=== PATIENT | female | born 1975 | race Caucasian/White ===

== ENCOUNTER 2017-06-11 15:22 | Inpatient (IN) | payer OTHER ==
[~2017-06-11] VITALS: Ht 149.9 cm; Wt 46.3 kg
[~2017-06-11 15:22] MED LIST: BAYER CHEWABLE81 MG PO; CARAFATE 1 GM TA1 GM PO; IBUPROFEN 400400 M1 PO; NOHOMEMEDICATIONS; NUVIGIL; PRILOSEC 20 MG20 MG PO; RITALIN10 MG PO; SSD CREAM 1% 5050 GM TOP; TOPAMAX 25 MG T25 M1 PO; TRAMADOL 50 MG50 MG PO; aspirin PO
[2017-06-11 15:27] VITALS: BP 145/88
[2017-06-11 15:31] VITALS: BP 145/88
[2017-06-11 15:51] LABS: ABSOLUTE BASOPHILS 0.1 thou/uL (0.0-0.2); ABSOLUTE EOSINOPHILS 0.1 thou/uL (0.0-0.7); ABSOLUTE LYMPHOCYTES 2.8 thou/uL (0.8-5.3); ABSOLUTE MONOCYTES 0.8 thou/uL (0.0-1.2); ABSOLUTE NEUTROPHILS 7.7 thou/uL (1.6-8.1); BASOPHILS 0.7 %; EOSINOPHILS 0.8 %; HEMATOCRIT 40.4 % (37.0-47.0); HEMOGLOBIN 13.5 gm/dL (12.0-15.0); LYMPHOCYTES 24.6 %; MCH 31.2 pg (26.0-34.0); MCHC 33.4 g/dL (28.0-37.0); MCV 93.4 fL (80.0-100.0); MONOCYTES 6.8 %; MPV 7.5 fl. (7.2-11.1); NUCLEATED RBCS 0 /100WBC; PLATELET COUNT* 283 thou/uL (150-400); POLYS 67.1 %; RBC 4.32 mil/uL (4.20-5.00); RDW-CV 12.8 % (10.5-14.5); WBC 11.5 thou/uL (4.0-11.0)
[2017-06-11 15:57] LABS: ANION GAP 8 mmol/L (7-16); BUN 23 mg/dL (7-18); CALCIUM 8.9 mg/dL (8.5-10.1); CHLORIDE 101 mmol/L (98-107); CO2 29 mmol/L (21-32); CREATININE 0.9 mg/dL (0.6-1.3); GLUCOSE 115 mg/dL (70-99); POTASSIUM 3.6 mmol/L (3.5-5.1); SODIUM 138 mmol/L (136-145)
[2017-06-11 16:00] LABS: INR 1.1; PROTIME 10.8 Seconds (9.20-11.50)
[2017-06-11 16:05] LABS: ALBUMIN 3.9 g/dL (3.4-5.0); ALKALINE PHOSPHATASE 68 U/L (46-116); SGOT 13 U/L (15-37); SGPT 22 U/L (30-65); TOTAL BILIRUBIN 0.8 mg/dL (<0.1-1.0); TOTAL PROTEIN 7.1 g/dL (6.4-8.2); TROPONIN-I LEVEL <0.06 ng/mL (<0.06)
[2017-06-11 17:19] VITALS: BP 145/88
[2017-06-11 17:54] VITALS: BP 148/76
[2017-06-11 18:00] VITALS: BP 148/76
--- NOTE | 2017-06-11 18:54 | NUR ---
PT ADMITTED TO ROOM 211 VIA CART FROM ED AT APPROXIMATELY 1755 WITH TIA. REPORT RECEIVED FROM EDMOND CLEMENS. PT ORIENTED TO ROOM AND CALL LIGHT. ADMISSION ASSESSMENT AND HISTORY COMPLETED. REFER TO CHARTING. HOME MEDICATIONS RECONCILED. PHARMACY ENTERED. SEPSIS SCREENING COMPLETE. PT SCREENED NEGATIVE. FALL AGREEMENT SIGNED AND PLACED IN CHART. NIH COMPLETED. PT SCORING 2 DUE TO MINOR DRIFT TO LLE AND MINOR DROOP TO LEFT SIDE OF FACE. NEURO CHECKS TO BE COMPLETED Q2H AND Q SHIFT. NEURO CHECK COMPLETED AT 1800. REFER TO CHARTING. PT STATED SHE HAD RECENT FALL WITHIN LAST 3 [address]S. FALL PRECAUTIONS IN PLACE. PT PASSED BEDSIDE SWALLOW WITH NO DIFFICULTIES. REGULAR DIET ORDERED FOR PT. PT TO BE NPO AFTER MIDNIGHT FOR CTA HEAD/BRAIN ANGIOGRAM IN AM. NEURO CONSULT IN PLACE. DR PERAZA SEEN PT IN ED. ORDERS RECEIVED FOR CT HEAD AND NECK, EEG AND US CAROTIDS. PT A&0X4. DENIES ANY PAIN OR SHORTNESS OF BREATH AT THIS TIME. TRACING SR ON THE OVERHEAD CRANE INSPECTOR. ON RA SAT 98%. PT UP SBA TO BATHROOM. MEDICATIONS PER AUG. PT HOURLY ROUNDING OBSERVED. PT REPOSITIONS SELF IN BED WITH REMINDERS. HOURLY ROUNDING OBSERVED. BED IN LOW POSITION. BED ALARM IN PLACE. FALL PRECAUTIONS IN PLACE. CALL LIGHT WITHIN REACH. WILL CONTINUE PLAN OF CARE.
[2017-06-11 20:15] VITALS: BP 127/79
[2017-06-12] VITALS: BP 119/56
[2017-06-12 04:00] VITALS: BP 96/54
[2017-06-12 04:58] LABS: CHOLESTEROL 215 mg/dL (<200); HDL CHOLESTEROL 77 mg/dL (>40); LDL CHOLESTEROL 130 mg/dL (<100); TC:HDL 2.8 Ratio (Not establshd); TRIGLYCERIDE 42 mg/dL (<150); VLDL 8 mg/dL (<40)
[2017-06-12 05:14] LABS: SERUM ASSESSMENT Clear
--- NOTE | 2017-06-12 05:31 | NUR ---
PT HAS RESTED COMFORTABLY THIS SHIFT, DENIES CONCERNS AND PAIN. VITAL SIGNS HAVE BEEN WDP THIS AND SR THIS SHIFT. NO SIGNIFICANT CHANGES THIS SHIFT.
[2017-06-12 07:30] VITALS: BP 126/88
[2017-06-12 08:00] VITALS: BP 107/58
[2017-06-12] MEDS ORDERED: FOLGARD TABLET1 EAC1 PO (09:44)
[2017-06-12] MEDS ORDERED: FISH OIL 1,001000 M2 PO (11:14)
[2017-06-12] MEDS ORDERED: ASA5UEC PO (11:14)
[2017-06-12 11:42] VITALS: BP 107/58
--- NOTE | 2017-06-12 11:43 | NUR ---
ORDER RECEIVED FOR "OT EVALUATION AND TREATMENT". 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 PT REPORTS NO NEUROLOGICAL SYMPTOMS AT THIS TIME. PT HAS PASSED VIDEO SWALLOW. AMBULATED WITH PHYSICAL THERAPIST THIS AM. PT STATES THAT SHE HAS NO NEED FOR SKILLED OT INTERVENTION AT THIS TIME. PLAN TO D/C.
[2017-06-12 12:08] VITALS: BP 107/58
--- NOTE | 2017-06-12 12:33 | NUR ---
VSS, ASSUMED CARE OF PT IN THE AM, ASSESSMENT PERFORMED AND CHARTED, FALL PRECAUTIONS IN PLACE AND CALL LIGHT IN REACH, PT IS A&O4 AND UP AD JESSY AND DENIES ANY PAIN, SCORES AN 0 ON NIH ASSESSMENT, PT GOAL IS TO D/C TO HOME ON DAY OF CARE, AT THIS TIME I HAVE RECIEVED D/C INSTRUCTIONS FILLED OUT PAPERS AND TOOK OUT IV AND TELE MONITOR, GAVE D/C INSTRUCTIONS PT DENIES ANY QUESTIONS AND SHE WAS WALKED OFF UNIT BY STAFF, AT 1230 TO CAR, HOURLY ROUNDS COMPLETED,
--- NOTE | 2017-07-04 20:10 | CON ---
[address] [address] CONSULTATION Name: LIVE BRIGHT Room: [address] IN M.R.#: [id number] Admission: 06/11/17 Attend Phys: Tiffanie Quick MD Discharge: 06/12/17 Date of : 71 Report #: [id number] THIS REPORT FOR: //name// CC: Tiffanie Pereyra DATE OF SERVICE: 06/11/2017 HISTORY OF PRESENT ILLNESS: This is a 41-year-old female patient who was evaluated by me for left-sided weakness and numbness. This patient had numerous episodes like this in the past. In fact, she had a patent foramen ovale, which was closed. She stopped taking aspirin and then, she had this episode where she had mainly numbness and some weakness on the left side. This was becoming better. This is a pattern she had followed in the past. No cause has been found in this patient and she had carotid Dopplers in the past. She had an MRI in the past. REVIEW OF SYSTEMS: She indicates she has narcolepsy. She has tried to get her sleep study from [facility], but we are not able to get that sleep study. She has a Gilbert syndrome, which if anything is protected from ischemic diseases if I remember correctly. This was her relevant 14-point review of systems. PAST MEDICAL HISTORY: Positive for migraine. FAMILY HISTORY: Negative for early age stroke. SOCIAL HISTORY: She does not smoke or drink any alcohol. PHYSICAL EXAMINATION: NEUROLOGICAL: Indicate that she is alert. She is responsive. Her speech, concentration, fund of knowledge and memory is at her baseline. Cranial nerve examination 2 through 12 may indicate slight weakness on the left side of the face, but the finding is not very prominent or convincing. She can move her arm against resistance and gravity but states that she is slightly weak but is getting better. Her touch is slightly different on both sides. Reflexes are symmetrical. CARDIAC: Examination is mostly unremarkable. RESPIRATORY: She has no respiratory difficulty. VITAL SIGNS: Blood pressure is 148/76, pulse is 82 and temperature is 98.7. RADIOLOGICAL DATA: Her CT scan was unremarkable. I reviewed her pretty extensive workup, which she had recently and that has been basically unremarkable. IMPRESSION: This patient may have had the same kind [place] [address] CONSULTATION Name: LIVE BRIGHT Dianna Room: [address]#: [id number] Admission: 06/11/17 Attend Phys: Tiffanie Quick MD Discharge: 06/12/17 Date of : 71 Report #: [id number] attack like symptoms, she had before. I discussed with her the options. I discussed with her the options of tissue plasminogen activator if she wants. Symptoms are mild and after discussing her options with her, she decided that she does not want the tissue plasminogen activator. As mentioned above, her symptoms are mild and we will follow that wishes. RECOMMENDATIONS: 1. We will get a carotid Doppler done. 2. I will also get an EEG done. 3. We will gradually increase the dose of Topamax. 4. The ER was going to give her aspirin in the Emergency Room. 5. We will follow the patient closely. More than 50 minutes of time was spent taking care of this patient today and majority of that time was spent counseling the patient and coordinating her care and reviewing her records in the computer. Thank you very much for this referral. <ELECTRONICALLY SIGNED> By: Bryce Calabrese MD 07/04/172009 1856 0317Bryce Calabrese MD /nt
== END 2017-06-12 12:28 | disposition home or self-care (01) | DRG 69 ==
LOC: M.ERS 15:22 → M.2W 16:29 → M.TBA-ER 16:29 → M.2W 17:54
PROVIDERS: Emergency Medicine; ADMIT Internal Medicine
DX: G45.9 Transient cerebral ischemic attack, unspecified (principal); Q21.1 Atrial septal defect; G43.909 Migraine, unspecified, not intractable, without status migrainosus; G47.419 Narcolepsy without cataplexy; Z88.6 Allergy status to analgesic agent; Z88.8 Allergy status to other drugs, medicaments and biological substances

== ENCOUNTER → 2017-08-15 | Outpatient (CLI) | payer OTHER ==
[~2017-08-15] MED LIST changes: +ASA5UEC PO; +BENADRYL25 MG PO; +FISH OIL 1,001000 M2 PO; +FOLGARD TABLET1 EAC1 PO; +MEDROLDOSEPACK PO; +NUVIGIL150 MG PO; +PLAVIX 75 MG TA75 M1 PO; +ROBAXIN 750 MG750 M1 PO; +TRAZODONE HCL100 MG PO; +TRIAMCINOLONE A80 G2 TOP; +VITAMIN D1000 UNI1 PO; +ZANAFLEX4 MG PO
[2017-08-15 17:08] LABS: IgA 110 mg/dL (87-352); IgG 788 mg/dL (700-1600); IgM 81 mg/dL (26-217)
== END ==
LOC: M.LAB 11:34
PROVIDERS: Psychiatry & Neurology Neuromuscular Medicine
DX: Z86.73 Personal history of transient ischemic attack (TIA), and cerebral infarction without residual deficits (principal)

== ENCOUNTER → 2017-08-21 | Outpatient (CLI) | payer OTHER ==
[2017-08-21 09:13] LABS: CHOLESTEROL 232 mg/dL (<200); HDL CHOLESTEROL 99 mg/dL (>40); LDL CHOLESTEROL 122 mg/dL (<100); TC:HDL 2.3 Ratio (Not establshd); TRIGLYCERIDE 57 mg/dL (<150); VLDL 11 mg/dL (<40)
[2017-08-21 09:14] LABS: SERUM ASSESSMENT Clear
== END ==
LOC: M.LAB 08:36
PROVIDERS: Internal Medicine Cardiovascular Disease
DX: G45.8 Other transient cerebral ischemic attacks and related syndromes (principal)

== ENCOUNTER → 2017-08-26 | Outpatient (CLI) | payer OTHER ==
--- NOTE | 2017-08-26 13:54 | 2DMMODE ---
[place] [address] 2 D/M-MODE ECHOCARDIOGRAM Name: LIVE BRIGHT Room: [facility]#: [id number] Admission: 08/26/17 Attend Phys: Adrian Pollock, Discharge: Date of : 71 Date of Service: 08/26/17 1354 Report #: [id number] THIS REPORT FOR: //name// APPROVED REPORT Study performed: 08/26/2017 11:42:52 EXAM: Comprehensive 2D, Doppler, and color-flow Echocardiogram with Bubble Study Patient Location: Out-Patient Status: routine BSA: 1.42 HR: 67 bpm BP: 120/80 mmHg Other Information Study Quality: Good Indications TIA PFO closure Echo Enhancing Agent Indication: Rule Out Septal Defect Agent(s) / Amount(s) Used: Agitated Saline cc 2D Dimensions LVEF(%): 57.47 (>50%) IVSd: 7.74 (7-11mm) LVOT Diam: 17.91 (18-24mm) LVDd: 45.77 mm PWd: 5.76 (7-11mm) Ascending Ao: 21.51 (22-36mm) LVDs: 31.99 (25-40mm) Aortic Root: 21.43 mm Borwn's LVEF: 57.47 % Volumes Left Atrial Volume (Systole) LA ESV Index: 20.30 mL/m2 Aortic Valve AoV Peak Luke.: 1.25 m/s AO Peak Gr.: 6.22 mmHg LVOT Max P.37 mmHg AO Mean Gr.: 3.25 mmHg LVOT Mean P.24 mmHg LVOT Max V: 1.16 m/s AO V2 VTI: 23.63 cm LVOT Mean V: 0.67 m/s SON (VTI): 2.41 cm2 LVOT V1 VTI: 22.63 [place] [address] 2 D/M-MODE ECHOCARDIOGRAM Name: LIVE BRIGHT Room: [facility]#: [id number] Admission: 08/26/17 Attend Phys: Adrian Pollock, Discharge: Date of : 71 Date of Service: 08/26/17 1354 Report #: [id number] Mitral Valve E/A Ratio: 1.39 MV Decel. Time: 155.40 ms MV E Max Luke.: 0.81 m/s MV PHT: 45.06 ms MVA (PHT): 4.88 cm2 TDI E/Lateral E': 4.50 E/Medial E': 5.40 Medial E' Luke.: 0.15 m/s Lateral E' Luke.: 0.18 m/s Pulmonary Valve PV Peak Luke.: 0.88 m/s PV Peak Gr.: 3.12 mmHg Tricuspid Valve TR Peak Gr.: 8.46 mmHg Left Ventricle The left ventricle is normal size. There is normal LV segmental wall motion. There is normal left ventricular wall thickness. Left ventricular systolic function is normal. LVEF is 55-60%. The left ventricular diastolic function is normal. Right Ventricle The right ventricle is normal size. The right ventricular systolic function is normal. Atria The left atrium size is normal. Injection of bubbles documented no interatrial shunt. Echogenic structure noted on both sides of the atrial septum consistent with an occluded her device. The right atrium size is normal. Aortic Valve The aortic valve is normal in structure. No aortic regurgitation is present. There is no aortic valvular stenosis. Mitral Valve The mitral valve is normal in structure. There is no mitral valve regurgitation noted. No evidence of mitral valve stenosis. Tricuspid Valve The tricuspid valve is normal in structure. Trace [place]icus[place] [address] 2 D/M-MODE ECHOCARDIOGRAM Name: LIVE BRIGHT Room: [facility]#: [id number] Admission: 08/26/17 Attend Phys: Adrian Pollock, Discharge: Date of : 71 Date of Service: 08/26/17 1354 Report #: [id number] Pulmonic Valve The pulmonary valve is normal in structure. There is no pulmonic valvular regurgitation. Great Vessels The aortic root is normal in size. IVC is normal in size and collapses with >50% inspiration Pericardium There is no pericardial effusion. <Conclusion> The left ventricle is normal size. There is normal left ventricular wall thickness. Left ventricular systolic function is normal. LVEF is 55-60%. The left ventricular diastolic function is normal. There is normal LV segmental wall motion. Injection of bubbles documented no interatrial shunt. Echogenic structure noted on both sides of the atrial septum consistent with an occluded her device. <ELECTRONICALLY SIGNED> By: Adrian Pollock MD, FACC 08/26/17 1354 1354 1354 Adrian Pollock MD, FACC /INF
== END ==
LOC: M.CRD 11:31
DX: G45.9 Transient cerebral ischemic attack, unspecified (principal)

== ENCOUNTER 2017-09-11 16:13 | Emergency (ER) | payer OTHER ==
[~2017-09-11] VITALS: Ht 149.9 cm; Wt 51.3 kg
[~2017-09-11 16:13] MED LIST changes: -BENADRYL25 MG PO; -MEDROLDOSEPACK PO; -NUVIGIL150 MG PO; -PLAVIX 75 MG TA75 M1 PO; -ROBAXIN 750 MG750 M1 PO; -TRAZODONE HCL100 MG PO; -TRIAMCINOLONE A80 G2 TOP; -VITAMIN D1000 UNI1 PO; -ZANAFLEX4 MG PO
[2017-09-11] MEDS ORDERED: PLAVIX 75 MG TA75 M1 PO (16:23)
[2017-09-11] MEDS ORDERED: TRIAMCINOLONE A80 G2 TOP (16:44)
[2017-09-11] MEDS ORDERED: MEDROLDOSEPACK PO (16:44)
[2017-09-11] MEDS ORDERED: BENADRYL25 MG PO (16:44)
[2017-09-11 16:58] VITALS: BP 141/97
== END 2017-09-11 17:00 | disposition home or self-care (01) ==
LOC: M.ERS 16:13
DX: L29.9 Pruritus, unspecified (principal); Z86.73 Personal history of transient ischemic attack (TIA), and cerebral infarction without residual deficits; Z88.1 Allergy status to other antibiotic agents; Z88.5 Allergy status to narcotic agent; Z91.013 Allergy to seafood

== ENCOUNTER 2017-10-24 16:28 | Inpatient (IN) | payer OTHER ==
[~2017-10-24] VITALS: Ht 152.4 cm; Wt 54.9 kg
[~2017-10-24 16:28] MED LIST changes: +BENADRYL25 MG PO; +MEDROLDOSEPACK PO; +PLAVIX 75 MG TA75 M1 PO; +TRIAMCINOLONE A80 G2 TOP
[2017-10-24 16:37] VITALS: BP 117/78
[2017-10-24] MEDS ORDERED: ROBAXIN 750 MG750 M1 PO (16:46)
[2017-10-24 17:00] LABS: HEMATOCRIT 38.6 % (37.0-47.0); HEMOGLOBIN 13.1 gm/dL (12.0-15.0); MCH 31.9 pg (26.0-34.0); MCV 93.6 fL (80.0-100.0); MPV 7.3 fl. (7.2-11.1); RBC 4.12 mil/uL (4.20-5.00); RDW-CV 12.3 % (10.5-14.5); WBC 6.9 thou/uL (4.0-11.0)
[2017-10-24 17:09] LABS: CALCIUM 9.2 mg/dL (8.5-10.1); POTASSIUM 3.9 mmol/L (3.5-5.1)
[2017-10-24 17:10] LABS: APTT 24.1 Seconds (25.0-31.3); PROTIME 10.1 Seconds (9.20-11.50)
[2017-10-24 17:14] LABS: TOTAL BILIRUBIN 0.6 mg/dL (<0.1-1.0); TOTAL PROTEIN 7.4 g/dL (6.4-8.2)
[2017-10-24 20:37] VITALS: BP 146/92
[2017-10-24 20:40] VITALS: BP 138/77
[2017-10-24] MEDS ORDERED: VITAMIN D1000 UNI1 PO (21:54)
[2017-10-24] MEDS ORDERED: ZANAFLEX4 MG PO (21:54)
[2017-10-25 01:06] VITALS: BP 92/51
[2017-10-25 04:27] VITALS: BP 95/51
[2017-10-25 05:22] LABS: CHOLESTEROL 213 mg/dL (<200); HDL CHOLESTEROL 67 mg/dL (>40); LDL CHOLESTEROL 135 mg/dL (<100); TC:HDL 3.2 Ratio (Not establshd); TRIGLYCERIDE 59 mg/dL (<150); VLDL 12 mg/dL (<40)
[2017-10-25 05:23] LABS: SERUM ASSESSMENT CLEAR
[2017-10-25 08:00] VITALS: BP 111/59
--- NOTE | 2017-10-25 13:07 | EKG ---
[place] [address] ELECTROCARDIOGRAM REPORT Name: LIVE BRIGHT Room: [address] IN [facility].#: [id number] Admission: 10/24/17 Attend Phys: Dianna Beltran Discharge: Date of : 71 Report #: [id number] THIS REPORT FOR: //name// [facility] ED Test Date: 2017-10-24 Test Time: 16:39:52 Pat Name: LIVE BRIGHT Department: Room: Gender: F Chart Changer: : 1975 Requested By: Song Hameed Order Number: [id number] MD: Espinoza Callahan Measurements Intervals [place] Rate: 73 P: 69 [place]: 117 QRS: 74 QRSD: 100 T: 17 QT: 370 QTc: 408 Interpretive Statements Sinus rhythm Borderline short [place] interval Minimal ST depression, inferior leads Compared to ECG 06/11/2017 16:02:35 ST (T wave) deviation now present Electronically Signed On 10-25-2017 13:07:21 CDT by Espinoza Callahan [email or web address] <ELECTRONICALLY SIGNED> By: Espinoza Callahan MD, FACC 10/25/17 1307 1639 1639 Espinoza Callahan MD, [facility] /EPI
[2017-10-25 14:29] VITALS: BP 111/59
[2017-10-25 17:11] LABS: GLYCOHEMOGLOBIN (HGB A1C) 4.6 % (4.8-5.6)
== END 2017-10-25 15:14 | disposition home or self-care (01) | DRG 69 ==
LOC: M.ERS 16:28 → M.TBA-ER 17:41 → M.2W 20:52
PROVIDERS: Emergency Medicine Emergency Medical Services; ADMIT Internal Medicine
DX: G45.9 Transient cerebral ischemic attack, unspecified (principal); G43.909 Migraine, unspecified, not intractable, without status migrainosus; E78.5 Hyperlipidemia, unspecified; F41.9 Anxiety disorder, unspecified; Z79.82 Long term (current) use of aspirin; Z79.899 Other long term (current) drug therapy; Z88.6 Allergy status to analgesic agent; Z88.8 Allergy status to other drugs, medicaments and biological substances

== ENCOUNTER → 2017-10-29 | Outpatient (CLI) | payer OTHER ==
[~2017-10-29] MED LIST changes: +NUVIGIL150 MG PO; +ROBAXIN 750 MG750 M1 PO; +TRAZODONE HCL100 MG PO; +VITAMIN D1000 UNI1 PO; +ZANAFLEX4 MG PO
== END ==
LOC: M.LAB 14:58
DX: Z12.31 Encounter for screening mammogram for malignant neoplasm of breast (principal)

== ENCOUNTER → 2017-11-06 | Outpatient (CLI) | payer OTHER | LOC: M.RAD 10-31 12:35 | DX: R92.1 Mammographic calcification found on diagnostic imaging of breast (principal) ==

== ENCOUNTER → 2017-12-19 | Outpatient (CLI) | payer OTHER ==
[2017-12-19 19:41] LABS: ABSOLUTE BASOPHILS 0.1 thou/uL (0.0-0.2); ABSOLUTE EOSINOPHILS 0.2 thou/uL (0.0-0.7); ABSOLUTE LYMPHOCYTES 2.4 thou/uL (0.8-5.3); ABSOLUTE MONOCYTES 0.4 thou/uL (0.0-1.2); ABSOLUTE NEUTROPHILS 3.7 thou/uL (1.6-8.1); BASOPHILS 0.9 %; EOSINOPHILS 2.2 %; HEMATOCRIT 37.2 % (37.0-47.0); HEMOGLOBIN 12.7 gm/dL (12.0-15.0); MCH 31.4 pg (26.0-34.0); MCV 92.3 fL (80.0-100.0); MONOCYTES 6.4 %; MPV 7.7 fl. (7.2-11.1); NUCLEATED RBCS 0 /100WBC; PLATELET COUNT* 284 thou/uL (150-400); POLYS 55.5 %; RBC 4.04 mil/uL (4.20-5.00); RDW-CV 12.5 % (10.5-14.5); WBC 6.7 thou/uL (4.0-11.0)
[2017-12-19 19:47] LABS: URINE BILIRUBIN NEGATIVE (Negative); URINE BLOOD NEGATIVE (Negative); URINE CLARITY SL CLOUDY; URINE COLOR YELLOW; URINE GLUCOSE-RANDOM NEGATIVE (Negative); URINE KETONES NEGATIVE (Negative); URINE LEUKOCYTES NEGATIVE (Negative); URINE NITRITE NEGATIVE (Negative); URINE PROTEIN NEGATIVE (Negative); URINE UROBILINOGEN 0.2 E.U./dl (0.2-1.0)
[2017-12-19 19:56] LABS: ALBUMIN 3.9 g/dL (3.4-5.0); CALCIUM 9.1 mg/dL (8.5-10.1); CREATININE 0.6 mg/dL (0.6-1.3); POTASSIUM 3.5 mmol/L (3.5-5.1); TOTAL BILIRUBIN 0.6 mg/dL (<0.1-1.0); TOTAL PROTEIN 7.1 g/dL (6.4-8.2)
[2017-12-19 20:48] LABS: ESR (SEDRATE) 4 mm/hr (0-20)
[2017-12-20 14:10] LABS: COMPLEMENT-C4 26 mg/dL (14-44)
[2017-12-22 13:15] LABS: ANA INTERPRETATION Negative (Negative)
== END ==
LOC: M.LAB 16:07
PROVIDERS: Allergy & Immunology Allergy
DX: L50.0 Allergic urticaria (principal)

== ENCOUNTER → 2017-12-23 | Outpatient (CLI) | payer OTHER | LOC: M.LAB 16:13 | DX: L50.0 Allergic urticaria (principal) ==

== ENCOUNTER 2018-04-16 03:16 | Emergency (ER) | payer OTHER ==
[~2018-04-16] VITALS: Ht 149.9 cm; Wt 54.9 kg
[~2018-04-16 03:16] MED LIST changes: -NUVIGIL150 MG PO; -TRAZODONE HCL100 MG PO
[2018-04-16 03:21] VITALS: BP 149/62
[2018-04-16] MEDS ORDERED: NUVIGIL150 MG PO (03:26)
[2018-04-16] MEDS ORDERED: TRAZODONE HCL100 MG PO (03:27)
== END 2018-04-16 04:07 | disposition home or self-care (01) ==
LOC: M.ERS 03:16
DX: Z77.098 Contact with and (suspected) exposure to other hazardous, chiefly nonmedicinal, chemicals (principal)

== ENCOUNTER 2018-04-22 00:19 | Emergency (ER) | payer OTHER ==
[~2018-04-22] VITALS: Ht 149.9 cm; Wt 54.4 kg
[~2018-04-22 00:19] MED LIST changes: +NUVIGIL150 MG PO; +TRAZODONE HCL100 MG PO
[2018-04-22 02:35] VITALS: BP 95/56
== END 2018-04-22 02:35 | disposition home or self-care (01) ==
LOC: M.ERS 00:19
DX: L29.9 Pruritus, unspecified (principal); Z88.1 Allergy status to other antibiotic agents; Z88.6 Allergy status to analgesic agent; Z91.013 Allergy to seafood; Z86.73 Personal history of transient ischemic attack (TIA), and cerebral infarction without residual deficits

== ENCOUNTER → 2018-08-04 | Outpatient (CLI) | payer OTHER | LOC: M.RAD 08:44 | DX: M47.892 Other spondylosis, cervical region (principal); W00.9XXA Unspecified fall due to ice and snow, initial encounter ==

== ENCOUNTER 2018-12-21 17:30 | Emergency (ER) | payer OTHER ==
[~2018-12-21] VITALS: Ht 149.9 cm; Wt 59.0 kg
[2018-12-21] MEDS ORDERED: ADDERALL 5 MG TA5 MG PO (17:39)
[2018-12-21 18:27] LABS: ABSOLUTE BASOPHILS 0.1 thou/uL (0.0-0.2); ABSOLUTE EOSINOPHILS 0.2 thou/uL (0.0-0.7); ABSOLUTE MONOCYTES 0.5 thou/uL (0.0-1.2); ABSOLUTE NEUTROPHILS 3.7 thou/uL (1.6-8.1); BASOPHILS 0.8 %; EOSINOPHILS 2.5 %; HEMATOCRIT 36.6 % (37.0-47.0); HEMOGLOBIN 12.7 gm/dL (12.0-15.0); LYMPHOCYTES 30.8 %; MCH 31.4 pg (26.0-34.0); MCHC 34.7 g/dL (28.0-37.0); MCV 90.7 fL (80.0-100.0); MONOCYTES 8.3 %; MPV 7.2 fl. (7.2-11.1); NUCLEATED RBCS 0 /100WBC; PLATELET COUNT* 269 thou/uL (150-400); POLYS 57.6 %; RBC 4.03 mil/uL (4.20-5.00); RDW-CV 12.4 % (10.5-14.5); WBC 6.5 thou/uL (4.0-11.0)
[2018-12-21 18:34] LABS: CALCIUM 8.8 mg/dL (8.5-10.1); CREATININE 0.6 mg/dL (0.6-1.3); POTASSIUM 3.6 mmol/L (3.5-5.1)
[2018-12-21 18:38] LABS: ALBUMIN 3.8 g/dL (3.4-5.0); TOTAL BILIRUBIN 0.6 mg/dL (<0.1-1.0); TOTAL PROTEIN 6.8 g/dL (6.4-8.2)
[2018-12-21] MEDS ORDERED: BUTALB-APAP-CA1 EACH PO (19:32)
[2018-12-21 19:42] VITALS: BP 121/61
== END 2018-12-21 19:42 | disposition home or self-care (01) ==
LOC: M.ERS 17:30
PROVIDERS: Physician Assistant
DX: R51 Headache (principal); R19.7 Diarrhea, unspecified; Z88.5 Allergy status to narcotic agent; Z88.8 Allergy status to other drugs, medicaments and biological substances

== ENCOUNTER → 2019-02-12 | Outpatient (CLI) | payer OTHER ==
[~2019-02-12] MED LIST changes: +ADDERALL 5 MG TA5 MG PO; +BUTALB-APAP-CA1 EACH PO
[2019-02-12 17:00] LABS: ABSOLUTE EOSINOPHILS 0.1 thou/uL (0.0-0.7); ABSOLUTE LYMPHOCYTES 1.8 thou/uL (0.8-5.3); ABSOLUTE MONOCYTES 0.5 thou/uL (0.0-1.2); ABSOLUTE NEUTROPHILS 4.9 thou/uL (1.6-8.1); BASOPHILS 0.7 %; EOSINOPHILS 1.1 %; HEMATOCRIT 39.3 % (37.0-47.0); HEMOGLOBIN 13.3 gm/dL (12.0-15.0); LYMPHOCYTES 24.2 %; MCH 31.3 pg (26.0-34.0); MCHC 33.9 g/dL (28.0-37.0); MCV 92.5 fL (80.0-100.0); MONOCYTES 6.8 %; MPV 7.4 fl. (7.2-11.1); NUCLEATED RBCS 0 /100WBC; PLATELET COUNT* 295 thou/uL (150-400); POLYS 67.2 %; RBC 4.25 mil/uL (4.20-5.00); RDW-CV 12.4 % (10.5-14.5); WBC 7.3 thou/uL (4.0-11.0)
[2019-02-12 17:09] LABS: ALBUMIN 3.9 g/dL (3.4-5.0); CALCIUM 9.2 mg/dL (8.5-10.1); CREATININE 0.9 mg/dL (0.6-1.3); POTASSIUM 3.8 mmol/L (3.5-5.1); TOTAL BILIRUBIN 0.5 mg/dL (<0.1-1.0); TOTAL PROTEIN 7.1 g/dL (6.4-8.2)
[2019-02-12 18:00] LABS: ESR (SEDRATE) 5 mm/hr (0-20)
[2019-02-16 14:08] LABS: ANA INTERPRETATION Negative (Negative); ANTI-RNP <0.2 AI (0.0-0.9)
== END ==
LOC: M.LAB 16:23
PROVIDERS: Family Medicine
DX: M65.9 Synovitis and tenosynovitis, unspecified (principal); M25.50 Pain in unspecified joint

== ENCOUNTER 2019-04-08 09:14 | Inpatient (IN) | payer OTHER ==
[~2019-04-08] VITALS: Ht 149.9 cm; Wt 58.1 kg
[2019-04-08 09:40] LABS: ABSOLUTE BASOPHILS 0.1 thou/uL (0.0-0.2); ABSOLUTE EOSINOPHILS 0.1 thou/uL (0.0-0.7); ABSOLUTE LYMPHOCYTES 2.1 thou/uL (0.8-5.3); ABSOLUTE MONOCYTES 0.5 thou/uL (0.0-1.2); ABSOLUTE NEUTROPHILS 4.5 thou/uL (1.6-8.1); BASOPHILS 0.9 %; EOSINOPHILS 1.1 %; HEMATOCRIT 42.5 % (37.0-47.0); HEMOGLOBIN 14.8 gm/dL (12.0-15.0); LYMPHOCYTES 29.4 %; MCH 31.4 pg (26.0-34.0); MCHC 34.8 g/dL (28.0-37.0); MCV 90.1 fL (80.0-100.0); MONOCYTES 6.6 %; MPV 7.4 fl. (7.2-11.1); NUCLEATED RBCS 0 /100WBC; PLATELET COUNT* 350 thou/uL (150-400); RBC 4.71 mil/uL (4.20-5.00); RDW-CV 12.6 % (10.5-14.5); WBC 7.2 thou/uL (4.0-11.0)
[2019-04-08 09:44] LABS: CALCIUM 9.9 mg/dL (8.5-10.1); CREATININE 0.7 mg/dL (0.6-1.3); POTASSIUM 3.8 mmol/L (3.5-5.1)
[2019-04-08 09:45] LABS: PROTIME 10.6 Seconds (9.20-11.50)
[2019-04-08 09:48] VITALS: BP 162/89
[2019-04-08 09:48] LABS: ALBUMIN 4.4 g/dL (3.4-5.0); TOTAL PROTEIN 8.1 g/dL (6.4-8.2)
[2019-04-08 14:48] LABS: URINE BILIRUBIN NEGATIVE (Negative); URINE BLOOD NEGATIVE (Negative); URINE CLARITY CLEAR; URINE COLOR YELLOW; URINE GLUCOSE-RANDOM NEGATIVE (Negative); URINE LEUKOCYTES NEGATIVE (Negative); URINE NITRITE NEGATIVE (Negative); URINE PROTEIN NEGATIVE (Negative); URINE UROBILINOGEN 0.2 E.U./dl (0.2-1.0)
[2019-04-08 14:51] LABS: URINE KETONES 3+ (Negative)
[2019-04-08 16:08] VITALS: BP 104/59
--- NOTE | 2019-04-08 16:44 | 2DMMODE ---
[place] [address] 2 D/M-MODE ECHOCARDIOGRAM Name: JETHROShukriLIVE PORTER Room: 170-10 ADM IN [facility]#: [id number] Admission: 04/08/19 Attend Phys: Oscar Pride, Discharge: Date of : 71 Date of Service: 04/08/19 1643 Report #: [id number] THIS REPORT FOR: //name// APPROVED REPORT Study performed: 04/08/2019 13:46:03 EXAM: Comprehensive 2D, Doppler, and color-flow Echocardiogram Patient Location: In-Patient Room #: er Status: routine BSA: 1.55 HR: 88 bpm BP: 123/66 mmHg Rhythm: NSR Other Information Study Quality: Good Indications CVA/TIA Echo Enhancing Agent Indication: Rule out Shunt Agent(s) / Amount(s) Used: Agitated Saline 10 cc 2D Dimensions IVSd: 9.39 (7-11mm) LVOT Diam: 18.92 (18-24mm) LVDd: 42.86 mm PWd: 8.56 (7-11mm) Ascending Ao: 22.01 (22-36mm) LVDs: 25.78 (25-40mm) Aortic Root: 26.39 mm Volumes Left Atrial Volume (Systole) LA ESV Index: 26.40 mL/m2 Aortic Valve AoV Peak Luke.: 1.56 m/s AO Peak Gr.: 9.71 mmHg LVOT Max P.80 mmHg AO Mean Gr.: 5.57 mmHg LVOT Mean P.58 mmHg LVOT Max V: 1.20 m/s AO V2 VTI: 30.23 cm LVOT Mean V: 0.73 m/s SON (VTI): 2.17 cm2 LVOT V1 VTI: 23.37 [place] [address] 2 D/M-MODE ECHOCARDIOGRAM Name: LIVE BRIGHT Room: [address] IN ..#: [id number] Admission: 04/08/19 Attend Phys: Oscar Pride, Discharge: Date of : 71 Date of Service: 04/08/19 1643 Report #: [id number] Mitral Valve E/A Ratio: 1.06 MV Decel. Time: 254.85 ms MV E Max Luke.: 0.79 m/s MV PHT: 73.91 ms MVA (PHT): 2.98 cm2 TDI E/Lateral E': 5.64 E/Medial E': 6.08 Medial E' Luke.: 0.13 m/s Lateral E' Luke.: 0.14 m/s Pulmonary Valve PV Peak Luke.: 1.12 m/s PV Peak Gr.: 5.00 mmHg Left Ventricle The left ventricle is normal size. There is normal LV segmental wall motion. There is normal left ventricular wall thickness. Left ventricular systolic function is normal. LVEF is 60-65%. The left ventricular diastolic function is normal. Right Ventricle The right ventricle is normal size. The right ventricular systolic function is normal. Atria The left atrium size is normal. Interatrial septum is intact without evidence of ASD or PFO. PFO closure device noted. The right atrium size is normal. Aortic Valve The aortic valve is normal in structure. No aortic regurgitation is present. There is no aortic valvular stenosis. Mitral Valve The mitral valve is normal in structure. There is no mitral valve regurgitation noted. No evidence of mitral valve stenosis. Tricuspid Valve The tricuspid valve is normal in structure. Unable to assess PA pressure. Trace tricuspid regurgitation. Pulmonic Valve The pulmonary valve is normal in structure. There is no pulmon[place] [address] 2 D/M-MODE ECHOCARDIOGRAM Name: LIVE BRIGHT Room: [address] IN [facility]#: [id number] Admission: 04/08/19 Attend Phys: Oscar Pride, Discharge: Date of : 71 Date of Service: 04/08/19 1643 Report #: [id number] Great Vessels The aortic root is normal in size. IVC is normal in size and collapses >50% with inspiration. Pericardium There is no pericardial effusion. <Conclusion> The left ventricle is normal size. There is normal left ventricular wall thickness. Left ventricular systolic function is normal. LVEF is 60-65%. The left ventricular diastolic function is normal. Interatrial septum is intact without evidence of ASD or PFO. PFO closure device noted. Trace tricuspid regurgitation. IVC is normal in size and collapses >50% with inspiration. <ELECTRONICALLY SIGNED> By: Adrian Pollock MD, FACC 04/08/19 1643 164 164 Adrian Pollock MD, FACC /INF
--- NOTE | 2019-04-08 16:55 | EKG ---
[place] [address] ELECTROCARDIOGRAM REPORT Name: LIVE BRIGHT Room: [place] [address] ADM IN ..#: [id number] Admission: 04/08/19 Attend Phys: Oscar Pride MD Discharge: Date of : 71 Report #: [id number] THIS REPORT FOR: //name// [facility] ED Test Date: 2019-04-08 Test Time: 09:42:54 Pat Name: LIVE BRIGHT Department: Room: [facility] Gender: F Cattyman: EV : 1975 Requested By: Adi Harrison Order Number: [id number] MD: Adrian Pollock Measurements Intervals [place] Rate: 79 P: 71 [place]: 121 QRS: 69 QRSD: 88 T: 21 QT: 360 QTc: 413 Interpretive Statements Sinus rhythm Atrial premature complex Borderline T wave abnormalities Compared to ECG 10/24/2017 16:39:52 Atrial premature complex(es) now present T-wave abnormality now present ST (T wave) deviation no longer present Electronically Signed On 04-08-2019 16:55:26 CDT by Adrian Pollock [email or web address] <ELECTRONICALLY SIGNED> By: Adrian Pollock MD, FACC 04/08/19 1655 0942 0942 Adrian Pollock MD, FACC /EPI
[2019-04-08 20:00] VITALS: BP 114/82
[2019-04-09] VITALS: BP 122/62
[2019-04-09 04:00] VITALS: BP 138/66
[2019-04-09 04:56] LABS: CHOLESTEROL 210 mg/dL (<200); HDL CHOLESTEROL 67 mg/dL (>40); LDL CHOLESTEROL 132 mg/dL (<100); TC:HDL 3.1 Ratio (Not establshd); TRIGLYCERIDE 57 mg/dL (<150); VLDL 11 mg/dL (<40)
[2019-04-09 05:03] LABS: SERUM ASSESSMENT CLEAR
[2019-04-09 08:00] VITALS: BP 123/75
[2019-04-09] MEDS ORDERED: VOLTAREN GEL 1100 G1 TOP (09:54)
[2019-04-09] MEDS ORDERED: PLAVIX 75 MG TA75 M1 PO (09:54)
[2019-04-09] MEDS ORDERED: LIPITOR40 MG PO (09:58)
[2019-04-09 11:30] VITALS: BP 128/71
[2019-04-09 15:40] VITALS: BP 108/71
[2019-04-09 17:18] VITALS: BP 108/71
[2019-04-10 02:06] LABS: GLYCOHEMOGLOBIN (HGB A1C) 4.9 % (4.8-5.6)
--- NOTE | 2019-04-16 14:24 | CON ---
[address] [address] CONSULTATION Name: LIVE BRIGHT Room: [address] IN M.R.#: [id number] Admission: 04/08/19 Attend Phys: Oscar Pride MD Discharge: 04/09/19 Date of : 71 Report #: [id number] THIS REPORT FOR: //name// CC: Oscar Pereyra DATE OF SERVICE: 04/08/2019 HISTORY OF PRESENT ILLNESS: This is a 43-year-old female patient who was evaluated by me for numbness on the left side of the body. This patient is known to me and she had multiple episodes like this in the past. She even had a patent foramen ovale closed. This patient used to be on Plavix, but she requested that her Plavix be stopped and the Plavix was stopped about a month ago or so. When I saw this patient, she indicated that her symptoms which were exclusively sensory, have resolved. This patient had multiple workups in the past and that included MRI. REVIEW OF SYSTEMS: Indicates she had multiple problems in the past. She has a history of PFO. She also had been followed at for narcolepsy. She had multiple episodes like this in the past. I reviewed those records. She does have some history of arthropathy, Gilbert syndrome. This was a relevant 14-point review of systems. PAST MEDICAL HISTORY: Positive for these kind of spells and patent foramen ovale. FAMILY HISTORY: Mostly unremarkable. SOCIAL HISTORY: She works as a speech pathologist here. PHYSICAL EXAMINATION: Indicate she is alert, responsive, able to follow simple and complex commands. Her speech, concentration, fund of knowledge and memory appeared to be her baseline. Cranial nerve examination, 2-12 looks mostly unremarkable. She says the sensation has pretty much returned back to the baseline. I did the sensation on the upper and lower extremities on both sides and that also appeared to be symmetrical. Strength looks symmetrical. No respiratory difficulty was noticed. Blood pressure is 104/59, respirations 17, pulse is 80, and temperature is 98.1. LABORATORY DATA: White count is 7.2. Sodium is normal. She had a head CT, which was unremarkable. Carotid Doppler was done and that was also unremarkable. IMPRESSION AND PLAN: Transient ischemic attack-like symptoms in the context of stopping the Plavix some time ago. Her Plavix has been restarted and we will see how she does. I need to talk to MRI because the [place] [address] CONSULTATION Name: LIVE BRIGHT Room: [address] IN [facility].#: [id number] Admission: 04/08/19 Attend Phys: Oscar Pride MD Discharge: 04/09/19 Date of : 71 Report #: [id number] this patient, there was a lot of artifact, so I would like to talk to the radiologist and see if we can avoid that artifact and if the study will be worth doing it. Dr. Ponce will follow up this patient with you from tomorrow. <ELECTRONICALLY SIGNED> By: Bryce Vitale MD 04/16/19 1424 1950 18Bryce Vitale MD /nt
[2019-04-27] MEDS ORDERED: FISH OIL + D31 EACH PO (13:55)
== END 2019-04-09 18:13 | disposition home or self-care (01) | DRG 69 ==
LOC: M.ERS 09:14 → M.TBA-ER 10:44 → M.2W 10:44
PROVIDERS: Emergency Medicine; ADMIT Internal Medicine
DX: G45.9 Transient cerebral ischemic attack, unspecified (principal); G43.909 Migraine, unspecified, not intractable, without status migrainosus; G47.419 Narcolepsy without cataplexy; M12.80 Other specific arthropathies, not elsewhere classified, unspecified site; E80.4 Gilbert syndrome; E78.5 Hyperlipidemia, unspecified; Z88.6 Allergy status to analgesic agent; Z88.8 Allergy status to other drugs, medicaments and biological substances; Z79.899 Other long term (current) drug therapy

== ENCOUNTER → 2019-04-23 | Outpatient (CLI) | payer OTHER ==
[~2019-04-23] MED LIST changes: +FISH OIL + D31 EACH PO; +LIPITOR40 MG PO; +VOLTAREN GEL 1100 G1 TOP
[2019-04-23 14:16] LABS: CHOLESTEROL 219 mg/dL (<200); GLUCOSE 85 mg/dL (70-99); HDL CHOLESTEROL 65 mg/dL (>40); LDL CHOLESTEROL 146 mg/dL (<100); TC:HDL 3.4 Ratio (Not establshd); TRIGLYCERIDE 44 mg/dL (<150); VLDL 9 mg/dL (<40)
[2019-04-23 14:17] LABS: SERUM ASSESSMENT Clear
[2019-04-24 02:09] LABS: GLYCOHEMOGLOBIN (HGB A1C) 4.9 % (4.8-5.6)
[2019-04-24 09:07] LABS: INSULIN 2.3 uIU/mL (2.6-24.9)
== END ==
LOC: M.LAB 09:23
PROVIDERS: Internal Medicine
DX: G45.9 Transient cerebral ischemic attack, unspecified (principal)

== ENCOUNTER → 2019-04-27 | Outpatient (CLI) | payer OTHER ==
--- NOTE | ~2019-04-27 | EKG ---
[place] [address] ELECTROCARDIOGRAM REPORT Name: LIVE BRIGHT Room: [facility]#: [id number] Admission: 04/27/19 Attend Phys: Adrian Pollock MD Discharge: Date of : 71 Report #: [id number] THIS REPORT FOR: //name// [facility] Test Date: 2019-04-29 Test Time: 11:35:56 Pat Name: LIVE BRIGHT Department: Room: Gender: F Mold Dresser: : 1975 Requested By: Adrian Pollock Order Number: [id number] Reading MD: Measurements Intervals [place] Rate: 42 P: 48 [place]: 174 QRS: 70 QRSD: 80 T: 25 QT: 490 QTc: 410 Interpretive Statements Sinus bradycardia Compared to ECG 04/08/2019 09:42:54 Sinus rhythm no longer present Atrial premature complex(es) no longer present T-wave abnormality no longer present [email or web address] By: 1135 1135 Epiphany EpiphanyMD /EPI
[2019-04-27 13:31] VITALS: BP 117/68
--- NOTE | 2019-05-05 08:03 | CARD ---
[facility] [address] [place] [address] CARDIAC CATH REPORT Name: KAILALIVE PORTER Room: [facility].#: [id number] Admission: 04/27/19 Attend Phys: Adrian Pollock MD Discharge: Date of : 71 Report #: [id number] THIS REPORT FOR: //name// CC: Adrian Pereyra DATE OF SERVICE: 04/27/2019 PROCEDURE: Implantable loop recorder placement. INDICATION: Rule out paroxysmal atrial fibrillation with recurrent transient ischemic attacks. DESCRIPTION OF PROCEDURE: After informed consent was obtained, the patient was brought to the cardiac holding area. The area of the chest was prepped and draped in sterile fashion. The fourth intercostal space, left of sternum was anesthetized with 1% lidocaine. Next, after an incision was made a Zeta Interactiveronik BioMonitor 3, model #[id number], serial #[id number] was introduced with the provided plunger. The skin incision was then closed with skin affix/Dermabond. The patient tolerated the procedure well without complication. IMPRESSION: 1. Recurrent transient ischemic attacks. 2. Rule out paroxysmal atrial fibrillation. 3. Successful placement of a BioMonitor 3 implantable loop recorder. Follow up in the office in 1 week with side check. <ELECTRONICALLY SIGNED> By: Adrian Pollock MD, [facility] 05/05/19 0803 1749 2308[facility] Psych[facility] Hospitalmercedes Pollock MD, [facility] /nt
== END | disposition home or self-care (01) ==
LOC: M.CL 12:56
DX: G45.9 Transient cerebral ischemic attack, unspecified (principal); Z98.890 Other specified postprocedural states; Z88.8 Allergy status to other drugs, medicaments and biological substances; Z79.899 Other long term (current) drug therapy

== ENCOUNTER 2019-09-10 15:17 | Emergency (ER) | payer OTHER ==
[~2019-09-10] VITALS: Ht 149.9 cm; Wt 53.5 kg
[2019-09-10] MEDS ORDERED: SUPER THERAVIT1 EACH PO (15:29)
[2019-09-10] MEDS ORDERED: AMOXICILLIN500 M1 PO (16:53)
[2019-09-10] MEDS ORDERED: PROAIR HFA8.5 GM INH (16:53)
[2019-09-10 17:10] VITALS: BP 142/78
== END 2019-09-10 17:10 | disposition home or self-care (01) ==
LOC: M.ERS 15:17
DX: J45.901 Unspecified asthma with (acute) exacerbation (principal); J02.9 Acute pharyngitis, unspecified; Z86.73 Personal history of transient ischemic attack (TIA), and cerebral infarction without residual deficits; Z88.1 Allergy status to other antibiotic agents; Z88.5 Allergy status to narcotic agent; Z91.013 Allergy to seafood

== ENCOUNTER → 2019-11-09 | Outpatient (CLI) | payer OTHER ==
[~2019-11-09] MED LIST changes: +AMOXICILLIN500 M1 PO; +PROAIR HFA8.5 GM INH; +SUPER THERAVIT1 EACH PO
== END ==
LOC: M.LAB 14:11
DX: N64.3 Galactorrhea not associated with childbirth (principal)